=== PATIENT | female | born 1960 | race Two or more races ===

== ENCOUNTER → 2024-09-13 | Outpatient (CLI) | payer MEDICAID, SELFPAY ==
--- NOTE | 2024-09-13 07:00 | XR_ITS ---
Examination: MRI lumbar spine without contrast Date and time of exam: September 13, 2024 0729 hours INDICATIONS: Lower back pain radiating down both legs 7 months after a fall with injury to lower back Technique: Multiple MRI axial and sagittal sections lumbar spine. Sagittal T2-weighted images, TR 3500, TE 118 T1 weighted transverse sections, TR 688 T8.5, T2-weighted sagittal sections T1 weighted sagittal sections TR 621, TE 30 T2 axial sections, TR 4, 190, TE 84. Findings: Adequate alignment lumbar vertebral bodies No lumbar fracture, minimal old wedging T11 Normal marrow signal vertebral bodies No spondylolisthesis Axial images demonstrate no focal lumbar disc protrusion IMPRESSION: No lumbar fracture No focal lumbar disc protrusion
== END | disposition home or self-care (01) ==
PROVIDERS: PCP Physician Assistant; Referring Provider Physician Assistant; Visit Provider Physician Assistant
DX: M54.50 Low back pain, unspecified (principal); S39.92XS Unspecified injury of lower back, sequela; W19.XXXS Unspecified fall, sequela
CPT/HCPCS: 72148